=== PATIENT | male | born 1970 | race Caucasian/White ===

== ENCOUNTER 2017-04-03 02:07 | Inpatient (IN) | payer OTHER ==
[~2017-04-03] VITALS: Ht 172.7 cm; Wt 72.6 kg
--- NOTE | 2017-04-03 02:15 | NUR ---
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 NO NEURO DEFICITS NOTED UPON TRIAGE. AAOX4, NAD NOTED, VSS, BREATHING EVEN AND UNLABORED. AMBULATORY WITH STEADY GAIT. SAFETY MEASURES IN PLACE. AWAITING FOR ER MD MARTINS.
--- NOTE | 2017-04-03 02:28 | NUR ---
FAXED RELEASE OF MEDICAL RECORD FORMS SIGNED BY PT TO ARACELI PARRAPOTTER OR CERAMIC ARTIST AT [facility]. FAX #:
[2017-04-03] MEDS ORDERED: ONDANSETRON HCL/PF 4 MG/2 ML VIAL IV ONE (02:30)
[2017-04-03] MEDS ORDERED: MORPHINE SULFATE INJ 2 MG/ML DISP.SYRIN IV ONE (02:30)
[2017-04-03] MEDS ORDERED: MORPHINE SULFATE INJ 10 MG/ML DISP.SYRIN ONE (03:02)
[2017-04-03] MEDS ORDERED: ONDANSETRON HCL/PF 4 MG/2 ML VIAL ONE (03:03)
[2017-04-03 03:17] LABS: BASOPHILS % (AUTO) 0.3 % (0.0-2.0); EOSINOPHILS # (AUTO) 0.1 /CMM (0.0-0.7); EOSINOPHILS % (AUTO) 1.4 % (0.0-6.0); HEMATOCRIT 45 % (39-51); HEMOGLOBIN 15.1 g/dL (13.5-17.5); LYMPHOCYTES # (AUTO) 2.2 /CMM (0.8-4.8); MEAN CORPUSCULAR HEMOGLOBIN 33 PG (26.0-33.0); MEAN CORPUSCULAR HGB CONC 34 g/dl (31.0-36.0); MEAN CORPUSCULAR VOLUME 96 fL (80-96); MONOCYTES # (AUTO) 0.4 /CMM (0.1-1.30); MONOCYTES % (AUTO) 4.7 % (2.0-12.0); NEUTROPHILS # (AUTO) 5.8 /CMM (1.8-8.9); NEUTROPHILS % (AUTO) 67.6 % (43.0-81.0); PLATELET COUNT (AUTO) 300 /CMM (150-450); RDW COEFFICIENT OF VARIATION 12.6 (11.5-15.0); RED BLOOD CELL COUNT(AUTO) 4.66 MIL/uL (4.5-6.0); WHITE BLOOD COUNT (AUTO) 8.6 K/uL (4.3-11.0)
[2017-04-03 03:23] LABS: CALCIUM, SERUM 9.7 mg/dL (8.5-10.1); CARBON DIOXIDE 29 mmol/L (21-32); CHLORIDE 108 mmol/L (98-107); CREATININE 0.9 mg/dL (0.6-1.3); GLUCOSE 71 mg/dL (74-106); POTASSIUM 3.3 mmol/L (3.5-5.1); SODIUM SERUM 146 mmol/L (136-145); UREA NITROGEN, BLOOD 14 mg/dL (7-18)
[2017-04-03 03:27] LABS: INR 1.09 (0.87-1.13); PROTHROMBIN TIME 11.3 SECS (9.5-12.7)
[2017-04-03 03:29] LABS: ALANINE AMINOTRANSFERASE 26 U/L (12-78); ALKALINE PHOSPHATASE 58 U/L (46-116); ASPARTATE AMINOTRANSFERASE 18 U/L (15-37); BILIRUBIN,DIRECT 0.1 mg/dL (0.0-0.2); BILIRUBIN,TOTAL 0.6 mg/dL (0.2-1.0); TOTAL PROTEIN, SERUM 7.7 g/dL (6.4-8.2)
--- NOTE | 2017-04-03 03:30 | NUR ---
CALLED ARACELI SIZE STAMPER AT [facility] ([phone]) TO CONFIRM SHE RECEIVED FAX. ARACELI STATED SHE RECEIVED OUR FAX REQUESTING MEDICAL RECORDS AND WILL SEND RECORDS SOON SHE IS FINISHED WITH HER CURRENT TASKS. DR. GALINDO NOTIFIED.
[2017-04-03 03:31] LABS: TROPONIN I < 0.017 ng/mL (0.00-0.056)
--- NOTE | 2017-04-03 04:17 | NUR ---
CALLED ARACELI PARRAGAME PRODUCER AT [facility] AND REQUESTED RECORDS BE FAXED TO ADMITTING FAX MACHINE ([phone]); ER FAX MACHINE NOT FUNCTIONING PROPERLY.
--- NOTE | 2017-04-03 04:25 | NUR ---
RECEIVED FAX OF MEDICAL RECORDS FROM LOCATED WITHIN [facility]. RECORDS REVIEWED BY DR. GALINDO AND PLACED IN THE PT'S CHART.
--- NOTE | 2017-04-03 04:30 | NUR ---
CALLED RESEARCH EDITOR FOR TELE BED
--- NOTE | 2017-04-03 04:43 | NUR ---
MADE PANEL CALL.
[2017-04-03 04:55] LABS: APPEARANCE,URINE CLEAR (CLEAR); BILIRUBIN,URINE 1+ (NEGATIVE); BLOOD, URINE NEGATIVE Ery/uL (NEGATIVE); COLOR,URINE DARK YELLOW (YELLOW); KETONES,URINE NEGATIVE (NEGATIVE); LEUKOCYTE ESTERASE ,URINE NEGATIVE (NEGATIVE); NITRITE, URINE NEGATIVE (NEGATIVE); PROTEIN,URINE NEGATIVE (NEGATIVE); UGLUCOSE NEGATIVE (NEGATIVE)
[2017-04-03] MEDS ORDERED: ASPI-991 PO (04:55)
[2017-04-03] MEDS ORDERED: ATOR80TA PO (04:55)
[2017-04-03 05:00] LABS: BACTERIA,URINE Few /HPF (None Seen); MUCUS,URINE Few /LPF (None Seen); SQUAMOUS EPITHELIAL CELL,UR Few /HPF (None Seen); WBC,URINE 0-2 /HPF (0-3)
--- NOTE | 2017-04-03 05:13 | NUR ---
MADE PANEL CALL AGAIN
--- NOTE | 2017-04-03 05:25 | NUR ---
Report given to Nurse Breen for admission and stacey.
--- NOTE | 2017-04-03 05:40 | NUR ---
Transferred patient to [facility] via als protocol, no incdent noted.
--- NOTE | 2017-04-03 05:50 | NUR ---
VOCATIONAL GUIDANCE COUNSELOR - ADMISSION NOTE - PT ADMITTED FROM ER FOR SUDDEN LEFT SIDED WEAKNESS AT APPROX 0100 04/03 PT STATES "FEELS LIKE PIN PIRCKS" AND HEADACHE 12/03, PT WAS JUST AT [facility] FOR CVA AND RECEIVED TPA. PT IS ABLE TO WALK, NO DEFECTS IN SPEECH, RIGHT SIDE ARM AND LEG WNL. PT IS ON ROOM AIR O2SAT 99%. PT IS IN NORMAL SINUS RHYTHM 70S, BP 153/97. WILL CONTINUE TO MONITOR
[2017-04-03 06:00] VITALS: BP 153/97
[2017-04-03 06:20] VITALS: BP 153/97
--- NOTE | 2017-04-03 06:20 | NUR ---
CALLED HAIDER MILNER FOR ADMISSION ORDERS, ORDERS CARRIED OUT.
[2017-04-03] MEDS ORDERED: POTASSIUM CHLORIDE 20 MEQ TAB.PRT.SR PO ONE ×2 (06:27→06:30)
--- NOTE | 2017-04-03 06:54 | NUR ---
ADMITTING DIAGNOSE VERIFIED WITH JOHANNA PERRY OF [facility]
--- NOTE | 2017-04-03 07:30 | NUR ---
SOFTWARE SYSTEMS ENGINEER OPENING RECEIVED PATIENT A/OX4 DENIES PAIN, SOB, DIFFICULTY BREATHING. PATIENT HAS WEAKNESS ON LEFT UPPER AND LOWER EXTREMITY. ARM DRIFT ON LEFT ARM AND LEG. PATIENT SWALLOWING INTACT NO ASPIRATION RISKS AT THIS TIME. FACE SYMMETRICAL. PER PATIENT THIS WEAKNESS IS NEW FOR THIS ADMISSION. THE PREVIOUS CVA HE HAD THIS LAST WEEK LEFT HIM WITH NO RESIDUAL WEAKNESS. PATIENT STATES HE WOULD LIKE TO REST AT THIS TIME. BED LOWERED AND LOCKED, RAILS UPX3 FOR SAFETY AND WILL ROUND Q2H OR LESS PER NEEDS. PATIENT INDEPENDENT REPOSITIONING IN BED. WILL ASSIST WHEN NEEDED. HOB AT 30.
--- NOTE | 2017-04-03 07:32 | NUR ---
HITCH TECHNICIAN NOTES FAXED MED RECON TO PHARMACY PER DR HAIDER MILNER ORDER
[2017-04-03 08:00] VITALS: BP 137/97
[2017-04-03] MEDS: ASPIRIN 81 MG TAB.CHEW PO SCH (09:46)
--- NOTE | 2017-04-03 09:53 | NUR ---
PRIMARY PRODUCTS INSPECTORS NOTES PATIENT STATES ON HIS ADMISSION HE WAS ALREADY HAVING LEFT EYE BLURRINESS AND IT IS NOW GETTING WORSE; VERY HAZY PER PATIENT. DR DUKE NOTIFIED AND DR DAS NOTIFIED
--- NOTE | 2017-04-03 10:03 | NUR ---
DETACKER NOTES DR DAS AT BEDSIDE. PATIENT STATES HIS HEADACHE IS GETTING WORSE. PATIENT REFUSING NORCO. PER MD ORDER TRAMADOL PO 50MG Q6PRN FOR PAIN
--- NOTE | 2017-04-03 10:19 | NUR ---
SAUSAGE MIXER NOTES DR DUKE AT BEDSIDE FOR EVALUATION
--- NOTE | 2017-04-03 10:30 | NUR ---
BOLT THREADER NOTES MESSAGE TO MD DAS IF PATIENT NEEDING TO BE ON BLOOD THINNERS
--- NOTE | 2017-04-03 11:00 | NUR ---
STAFF WEAPONS OFFICER NOTES GAVE PATIENT STROKE PACKET, EDUCATED ON ALL INSERTS. PATIENT STATES UNDERSTANDING. REFUSING NICOTINE PATCH AND STATES HE DOES NOT WANT TO SMOKE
[2017-04-03] MEDS: TRAMADOL HCL 50 MG TABLET PO PRN (11:25)
[2017-04-03 12:00] VITALS: BP 141/88
[2017-04-03] MEDS ORDERED: LORAZEPAM INJ 2 MG/ML VIAL IV ONE (15:30)
--- NOTE | 2017-04-03 15:30 | NUR ---
STAFF READINESS OFFICER NOTES ELIZABETH REFUSING TO TAKE MRI WITHOUT BEING "PUT OUT" EXPLAINED WE ARE UNABLE TO DO THAT HERE. PATIENT STATES HE WILL TRY ATIVAN. PER DR DAS ORDER 1MG ATIVAN IVP ONCE PRIOR TO MRI
[2017-04-03 16:00] VITALS: BP 165/95
--- NOTE | 2017-04-03 16:10 | NUR ---
SENIOR LEAD SOFTWARE ENGINEER NOTES PATIENT TAKEN DOWN TO MRI. ATIVAN GIVEN ORDERED.
--- NOTE | 2017-04-03 16:51 | NUR ---
LOADING AND UNLOADING SUPERVISOR NOTES PATIENT UNABLE TO COMPLETE MRI ORDERED.
--- NOTE | 2017-04-03 19:42 | NUR ---
RN INITIAL NOTE RECEIVED PT IN NO ACUTE DISTRESS IN BED. PT IS A/O X 4 AND ABLE TO MAKE NEEDS KNOWN. PT IS ON RA AND TOLERATING WELL WITH O2 SAT @ 98%. PT IS ON TELE WITH SR ON THE MONITOR. PT IS NOT C/O ANY SOB, DIFFICULTY BREATHING OR PAIN AT THIS TIME. PT HAS LHAND 20G THAT IS CLEAN DRY INTACT AND PATENT WITH SALINE FLUSH. BED IN LOW LOCK POSITION WITH RIALS UP X 2. CALL LIGHT WITHIN REACH AND ALL SAFETY MEASURES ENSURED AND CARRIED OUT. WILL CONTINUE TO MONITOR PT.
[2017-04-03 20:00] VITALS: BP 143/83
[2017-04-03] MEDS: ATORVASTATIN 40 MG TABLET PO SCH (21:36)
[2017-04-04] VITALS: BP_SYST 139; BP_DIAS 62; BP_DIAS 82
[2017-04-04 04:00] VITALS: BP_SYST 118; BP_SYST 149; BP_DIAS 53; BP_DIAS 81
[2017-04-04] MEDS: TRAMADOL HCL 50 MG TABLET PO PRN ×3 (04:08→22:06)
[2017-04-04 06:24] LABS: BASOPHILS # (AUTO) 0.1 /CMM (0.0-0.2); BASOPHILS % (AUTO) 1.5 % (0.0-2.0); EOSINOPHILS # (AUTO) 0.2 /CMM (0.0-0.7); EOSINOPHILS % (AUTO) 2.3 % (0.0-6.0); HEMATOCRIT 44 % (39-51); HEMOGLOBIN 14.9 g/dL (13.5-17.5); LYMPHOCYTES % (AUTO) 27.7 % (20.0-44.0); MEAN CORPUSCULAR HEMOGLOBIN 32 PG (26.0-33.0); MEAN CORPUSCULAR HGB CONC 34 g/dl (31.0-36.0); MEAN CORPUSCULAR VOLUME 95 fL (80-96); MONOCYTES # (AUTO) 0.3 /CMM (0.1-1.30); MONOCYTES % (AUTO) 4.7 % (2.0-12.0); NEUTROPHILS # (AUTO) 4.6 /CMM (1.8-8.9); NEUTROPHILS % (AUTO) 63.8 % (43.0-81.0); PLATELET COUNT (AUTO) 251 /CMM (150-450); RDW COEFFICIENT OF VARIATION 12.7 (11.5-15.0); RED BLOOD CELL COUNT(AUTO) 4.61 MIL/uL (4.5-6.0); WHITE BLOOD COUNT (AUTO) 7.2 K/uL (4.3-11.0)
[2017-04-04 06:41] LABS: CALCIUM, SERUM 9.1 mg/dL (8.5-10.1); CREATININE 0.6 mg/dL (0.6-1.3); PHOSPHORUS 3.6 mg/dL (2.5-4.9)
--- NOTE | 2017-04-04 06:45 | NUR ---
RN CLOSING NOTE PT REMAINS IN NO ACUTE DISTRESS IN BED. PT DID NOT HAVE ANY SIGNIFICANT CHANGE IN CONDITION DURING SHIFT. ALL NEEDS MET, ALL ORDERS CARRIED OUT. WILL ENDORSE CARE TO AM RN FOR CONTINUITY OF CARE.
[2017-04-04 07:35] LABS: THYROID STIMULATING HORMONE 0.487 uIU/mL (0.358-3.74)
[2017-04-04 08:00] VITALS: BP 133/93
[2017-04-04] MEDS ORDERED: ASPIRIN EC 81 MG TABLET.DR PO SCH (09:00)
[2017-04-04] MEDS: ASPIRIN 81 MG TAB.CHEW PO SCH (09:01)
[2017-04-04] MEDS: ACETAMINOPHEN 325 MG TABLET PO PRN ×2 (09:01→17:56)
[2017-04-04] MEDS ORDERED: LORAZEPAM INJ 2 MG/ML VIAL IV ONE ×3 (10:00→19:46)
[2017-04-04] MEDS: Magnesium 1GM/D5W 100ML PREMIX 100 ML IV SCH ×2 (11:07→12:56)
[2017-04-04 12:00] VITALS: BP 142/90
[2017-04-04] MEDS: NICOTINE PATCH (21MG) 21 MG PATCH.TD24 TD SCH (12:58)
[2017-04-04 16:00] VITALS: BP_SYST 119; BP_SYST 123; BP_DIAS 53; BP_DIAS 77
--- NOTE | 2017-04-04 16:08 | NUR ---
Social service consult requested by Dr. Kc for possible stroke. Pt. is a 47 year old male who was admitted to [facility] for stroke. SW and correctional case records supervisor Timothy met with pt. bedside. Pt. is alert and oriented x 3. Pt. had his belongings bedside. Pt. states he is from [facility] and was visiting when he fell ill. Pt. was a [facility] program in [place], however left AMA. Pt. wants to go back to [place], [place] once medically cleared if he is not able to go to acute rehab in [place] as suggested by PT. Pt. has a history of heroin use. Pt. resides with his mother in [place] and is her caregiver as well. Pt's current address in [place] is [address] [place] [address], [place], [place]. Hs mother is Julia Rondon and she is his emergency contact. She can be reached at . Pt. denies suicidal/homicidal ideations and visual/auditory hallucinations at this time. Pt. is independent with his ADLS. No other social service needs are requested at this time. SW is available, if needed.
--- NOTE | 2017-04-04 16:10 | NUR ---
spoke with patient,he is traveling and visiting [place]. He lives with his mother in [place], [place]. 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 Prior to admission, patient was ambulatory and independent with adl's. Patient report that he was recently at the [facility] in [facility] but singed out AMA. He plan to fly back to [place] once discharge from the hospital. Addendum: 04/04/17 at 2111 by SHANTA HENDRICKS RN Amended: Links added.
--- NOTE | 2017-04-04 17:59 | NUR ---
RN notes: Ativan was not administered due to MRI not done today, contact MRI department, no answered, left voice massage couple times. charge nurse aware, said will follow up. will endorse to call for schedule tomorrow AM. will reorder Ativan as per DR. pineda.
--- NOTE | 2017-04-04 19:24 | NUR ---
RN notes: Patient remains stable during shift. safety measures observed. seizure precautions observed. report given to PM RN at bedside for continuity of care.
[2017-04-04] MEDS ORDERED: LORAZEPAM INJ 2 MG/ML VIAL IV PRN (19:30)
[2017-04-04 20:00] VITALS: BP 136/65
[2017-04-04] MEDS: ATORVASTATIN 40 MG TABLET PO SCH (21:30)
--- NOTE | 2017-04-04 22:30 | NUR ---
RN NOTE RECEIVED ORDERS FROM DR MILNER TO GIVE TORADOL 15MG Q6H IV FOR HEAD PAIN AND HYDRALAZINE 25MG PO X 1 FOR BP OF 146/100. READ BACK ORDERS PERFORMED. WILL CONTINUE TO MONITOR PT.
--- NOTE | 2017-04-04 22:30 | NUR ---
RN NOTE ANSWERED PT CALL LIGHT AND PT C/O NUMBNESS AND WEAKNESS ON THE LEFT SIDE WELL A 10/[address]. [address] MILNER ON PT COMPLAINTS AND S/S, ALSO INFORMED THAT PT HAS HX OF LEFT SIDED NUMBNESS, WEAKNESS AND HEADACHE. PT WAS TREATED AT [facility] WITH TPA WITH ALL SYMPTOMS RESOLVED. PT WAS ADMITTED FOR LEFT SIDED NUMBNESS AND HEADACHE WITHOUT WEAKNESS. CT OF HEAD WAS DONE AND SHOWED NEGATIVE FOR INTRACRANIAL HEMORRHAGE. FIRST MRI WAS ATTEMPTED BUT PT BECAME VERY ANXIOUS EVEN WITH ATIVAN GIVEN. SECOND ATTEMPT PT HAD SEIZURE WHILE IN MRI MACHINE AND PHOTOGRAPH TINTER WAS CALLED. MRI NOT PERFORMED. ORDERS RECEIVED FROM DR MILNER PER OTHER NOTE.
[2017-04-04] MEDS ORDERED: hydrALAZINE HCL 25 MG TABLET ONE (22:41)
[2017-04-04] MEDS ORDERED: KETOROLAC TROMETHAMINE INJ 30 MG/ML VIAL ONE (22:42)
[2017-04-04] MEDS: KETOROLAC TROMETHAMINE INJ 30 MG/ML VIAL IV PRN (22:45)
[2017-04-04] MEDS ORDERED: hydrALAZINE HCL 25 MG TABLET PO SCH (23:00)
[2017-04-04] MEDS ORDERED: hydrALAZINE HCL 25 MG TABLET PO ONE (23:00)
[2017-04-05] VITALS: BP 146/100
--- NOTE | 2017-04-05 00:10 | NUR ---
RN NOTE CALLED DR MILNER FOR UPDATE ON TORADOL AND HYDRALAZINE MEDICATION GIVEN PER PRIOR ORDERS AND STATED NO CHANGE. DR MILNER ORDERED ZOFRAN 4MG IV Q4H PRN AND MORPHINE 2MG IV Q4H FOR NAUSEA AND HEAD PAIN. DR. MILNER SAID HE SPOKE WITH DR. DUKE AND DR. DUKE STATED "I DON'T THINK ANYTHING IS WRONG WITH HIM (PT)".
[2017-04-05] MEDS ORDERED: ONDANSETRON HCL/PF 4 MG/2 ML VIAL ONE (00:16)
[2017-04-05] MEDS ORDERED: MORPHINE SULFATE INJ 4 MG/ML DISP.SYRIN ONE ×3 (00:19→05:56)
[2017-04-05] MEDS: MORPHINE SULFATE INJ 2 MG/ML DISP.SYRIN IV PRN ×3 (00:26→06:04)
[2017-04-05] MEDS ORDERED: ONDANSETRON HCL/PF 4 MG/2 ML VIAL IV PRN (00:30)
--- NOTE | 2017-04-05 01:15 | NUR ---
RN NOTE PT STATED "MY NECK IS STIFF, STIFF LIKE A VICE". WILL NOTIFY DR MILNER.
--- NOTE | 2017-04-05 01:25 | NUR ---
RN NOTE NOTIFIED DR MILNER ON PT LATEST COMPLAINT ABOUT A STIFF NECK. DR MILNER REQUESTED LUMBAR PUNCTURE KIT AND CONSENT FOR LUMBAR PUNCTURE. READBACK ORDERS PERFORMED AND WILL HAVE CONSENT SIGNED AND SUPPLIES AT BEDSIDE.
[2017-04-05] MEDS ORDERED: KETOROLAC TROMETHAMINE INJ 30 MG/ML VIAL ONE (04:12)
[2017-04-05] MEDS: KETOROLAC TROMETHAMINE INJ 30 MG/ML VIAL IV PRN (04:18)
[2017-04-05] MEDS: TRAMADOL HCL 50 MG TABLET PO PRN (04:18)
--- NOTE | 2017-04-05 06:00 | NUR ---
RN NOTE HAIDER ALF AT BEDSIDE TO PERFORM LUMBAR PUNCTURE.
--- NOTE | 2017-04-05 06:20 | NUR ---
RN NOTE NOTIFIED BY DR HAIDER MILNER THAT LUMBAR PUNCTURE WAS UNSUCCESSFUL X 3 ATTEMPTS. WILL CONTINUE TO MONITOR PT.
--- NOTE | 2017-04-05 06:22 | NUR ---
RN NOTE RECEIVED VERBAL ORDERS TO CHANGE MORPHINE 2MG Q4H TO MORPHINE 2MG Q1H. REPEAT ORDERS BACK PERFORMED.
--- NOTE | 2017-04-05 06:26 | NUR ---
RN CLOSING NOTE PT REMAINS IN BED ASLEEP IN NO ACUTE DISTRESS. PT HAD HEADACHE 10/10 AND PAIN MANAGEMENT INITIATED. LUMBAR PUNCTURE ATTEMPTED BY DR HAIDER MILNER WITHOUT SUCCESS. AWAITING FURTHER ORDERS. ALL NEEDS MET, ALL ORDERS CARRIED OUT. WILL ENDORSE CARE TO AM RN FOR CONTINUITY OF CARE.
--- NOTE | 2017-04-05 07:30 | NUR ---
RN INITIAL NOTE RECEIVED PT IN NO ACUTE DISTRESS IN BED. PT IS A/O X 4 AND ABLE TO MAKE NEEDS KNOWN. PT IS ON RA AND TOLERATING WELL WITH O2 SAT @ 98%. PT IS ON TELE WITH SR ON THE MONITOR. PT IS NOT C/O ANY SOB, DIFFICULTY BREATHING OR PAIN AT THIS TIME. PT HAS L HAND 20G THAT IS CLEAN DRY INTACT AND PATENT WITH SALINE FLUSH. BED IN LOW LOCK POSITION WITH RIALS UP X 2. CALL LIGHT WITHIN REACH AND ALL SAFETY MEASURES ENSURED AND CARRIED OUT. WILL CONTINUE TO MONITOR PT.
[2017-04-05 08:00] VITALS: BP 149/97
[2017-04-05 08:53] VITALS: BP 149/97
[2017-04-05] MEDS: NICOTINE PATCH (21MG) 21 MG PATCH.TD24 TD SCH (08:54)
[2017-04-05] MEDS: ASPIRIN 81 MG TAB.CHEW PO SCH (08:54)
[2017-04-05] MEDS ORDERED: LISINOPRIL (10MG) 10 MG TABLET PO SCH (09:00)
[2017-04-05] MEDS ORDERED: HYDROMORPHONE INJ 2 MG/ML DISP.SYRIN IV PRN (09:00)
--- NOTE | 2017-04-05 11:30 | NUR ---
PT. WENT HOME ON AMA STATUS.Peyton MILLER SHANNON AWARE OF THIS. PT UNDERSTANDS OUTCOMES AND KNOWS HE IS RESPONSIBLE FOR HIMSELF.Assisted him to care on wheelchair
== END 2017-04-05 11:52 | disposition left against medical advice (07) | DRG 69 ==
LOC: ER 02:11 → TELE1 05:17 → MEDSG1 04-04 19:11
PROVIDERS: ADMIT Nurse Practitioner Acute Care; ATTEND Nurse Practitioner Acute Care
DX: G45.9 Transient cerebral ischemic attack, unspecified (principal); E87.0 Hyperosmolality and hypernatremia; E87.6 Hypokalemia; I10 Essential (primary) hypertension; E78.5 Hyperlipidemia, unspecified; F17.210 Nicotine dependence, cigarettes, uncomplicated; I25.10 Atherosclerotic heart disease of native coronary artery without angina pectoris; Z86.73 Personal history of transient ischemic attack (TIA), and cerebral infarction without residual deficits; Z98.61 Coronary angioplasty status; I25.2 Old myocardial infarction; G43.109 Migraine with aura, not intractable, without status migrainosus
CPT/HCPCS: 36415; 70450-TC; 71010-TC; 80048-TC; 80061-TC; 80076-TC; 81000-TC; 82962-TC; 83735-TC; 84100-TC; 84443-TC; 84484-TC; 85025-TC; 85730-TC; 87081-TC; 92611-TC; 93307-TC; 95819-TC; 97110-TC; 97116-TC; 97530-TC; A4606; A6402; J1170; J1885; J2060; J2270; J2405; J3475; Z7610